=== PATIENT | male | born 1955 | race African-American/Black ===

== ENCOUNTER 2017-08-10 16:03 | Emergency (ER) | payer MEDICAID ==
[~2017-08-10 16:03] MED LIST: LOPE2TAB3 PO; RANI150C PO; ZOFR4TAB3 SL
[2017-08-10 16:05] VITALS: BP 154/106; PULSE 98; RESP 16; TEMP 97.6; O2SAT 99
[2017-08-10 16:45] LABS: AUTOMATED NEUTROPHIL # 2.1 TH/MM3 (1.8-7.7); BASOPHIL % 0.5 % (0.0-2.0); EOSINOPHIL # 0.3 TH/MM3 (0-0.4); EOSINOPHIL % 4.9 % (0.0-4.0); HEMATOCRIT 37.4 % (39.0-51.0); HEMO FLAGS DIFF FINAL; LYMPH % 49.6 % (9.0-44.0); LYMPHOCYTE # 3.1 TH/MM3 (1.0-4.8); MEAN CELL VOLUME 98.3 FL (80.0-100.0); MEAN CORPUSCULAR HEMOGLOBIN 33.2 PG (27.0-34.0); MEAN CORPUSCULAR HGB CONC 33.7 % (32.0-36.0); MONO % 11.6 % (0.0-8.0); NEUT % 33.4 % (16.0-70.0); PLATELET COUNT 207 TH/MM3 (150-450); RED BLOOD COUNT 3.81 MIL/MM3 (4.50-5.90); RED CELL DISTRIBUTION WIDTH 13.7 % (11.6-17.2); WHITE BLOOD COUNT 6.2 TH/MM3 (4.0-11.0)
[2017-08-10 16:52] LABS: BLOOD, URINE NEG (NEG); GLUCOSE,URINE NEG (NEG); HYALINE CAST, URINE 1 /lpf (RARE); KETONE, URINE NEG (NEG); NITRITE,URINE NEG (NEG); SQUAMOUS EPITHELIAL CELL URINE <1 /hpf (0-5); URINE COLOR LIGHT-YELLOW (YELLW/STRAW)
[2017-08-10 16:54] LABS: COMMENT (UR) CULT NOT INDICATED; CULTURE IF INDICATED CULT NOT INDICATED
[2017-08-10 17:05] LABS: APTT (PATIENT) 28.1 SEC (24.3-30.1); PROTHROMBIN TIME - PATIENT 11.3 SEC (9.8-11.6)
[2017-08-10 17:19] LABS: BICARBONATE 25.6 MEQ/L (21.0-32.0); POTASSIUM 3.5 MEQ/L (3.5-5.1)
--- NOTE | 2017-08-10 17:49 | PD ---
HPI Chief Complaint: Abdominal Pain Time Seen by Provider: 17:36 Travel History International Travel<30 days: No Contact w/Intl Traveler<30days: No Traveled to known affect area: No History of Present Illness HPI 62-year-old male here for evaluation of right inguinal hernia pain. The patient reports that he first noticed a hernia about 2 months ago while doing heavy lifting. He states that when he coughs to hernia protrudes. He has been having pain in this area for the last 2 months. No change today. No vomiting. No history of abdominal surgeries. Pain is described as burning, moderate. PFSH Social History Tobacco Use: No Allergies-Medications (Allergen,Severity, Reaction): Coded Allergies: No Known Allergies (Unverified , 08/22/16) Reported Meds & Prescriptions Reported Meds & Active Scripts Active Loperamide (Loperamide HCl) 2 Mg Tab 2 Mg PO DIRECTED PRN One tablet after each loose stool. Not to exceed 8 tablets per day. Zofran Odt (Ondansetron Odt) 4 Mg Tab 4 Mg SL Q8HR PRN May substitute non-ODT form. Ranitidine (Ranitidine HCl) 150 Mg Cap 150 Mg PO BID Review of Systems Except as stated in HPI: all other systems reviewed are Neg Physical Exam Narrative GENERAL: Well-developed, well-nourished, comfortable, no apparent distress. SKIN: Focused skin assessment warm/dry. HEAD: Atraumatic. Normocephalic. EYES: Pupils equal and round. No scleral icterus. No injection or drainage. ENT: No nasal bleeding or discharge. Mucous membranes pink and moist. NECK: Trachea midline. No JVD. CARDIOVASCULAR: Regular rate and rhythm. RESPIRATORY: No accessory muscle use. Clear to auscultation. Breath sounds equal bilaterally. GASTROINTESTINAL: Abdomen soft, non-tender, nondistended. Normal bowel sounds. : Direct right inguinal hernia that is easily reducible. The rest of his exam is within normal limits. MUSCULOSKELETAL: No obvious deformities. No clubbing. No cyanosis. No edema. NEUROLOGICAL: Awake and alert. No obvious cranial nerve deficits. Motor grossly within normal limits. Normal speech. PSYCHIATRIC: Appropriate mood and affect; insight and judgment normal. Data Data Last Documented VS Vital Signs Date Time Temp Pulse Resp B/P (MAP) Pulse Ox O2 Delivery O2 Flow Rate FiO2 08/10/17 16:05 97.6 98 16 154/106 (122) 99 Orders Orders Basic Metabolic Panel (Bmp) (08/10/17 16:20) Complete Blood Count With Diff (08/10/17 16:20) Prothrombin Time / Inr (Pt) (08/10/17 16:20) Act Partial Throm Time (Ptt) (08/10/17 16:20) Urinalysis - C+S If Indicated (08/10/17 16:20) Labs Laboratory Tests Test 08/10/17 16:25 08/10/17 16:30 White Blood Count 6.2 TH/MM3 Red Blood Count 3.81 MIL/MM3 Hemoglobin 12.6 GM/DL Hematocrit 37.4 % Mean Corpuscular Volume 98.3 FL Mean Corpuscular Hemoglobin 33.2 PG Mean Corpuscular Hemoglobin Concent 33.7 % Red Cell Distribution Width 13.7 % Platelet Count 207 TH/MM3 Mean Platelet Volume 7.6 FL Neutrophils (%) (Auto) 33.4 % Lymphocytes (%) (Auto) 49.6 % Monocytes (%) (Auto) 11.6 % Eosinophils (%) (Auto) 4.9 % Basophils (%) (Auto) 0.5 % Neutrophils # (Auto) 2.1 TH/MM3 Lymphocytes # (Auto) 3.1 TH/MM3 Monocytes # (Auto) 0.7 TH/MM3 Eosinophils # (Auto) 0.3 TH/MM3 Basophils # (Auto) 0.0 TH/MM3 CBC Comment DIFF FINAL Differential Comment Prothrombin Time 11.3 SEC Prothromb Time International Ratio 1.0 RATIO Activated Partial Thromboplast Time 28.1 SEC Blood Urea Nitrogen 8 MG/DL Creatinine 0.91 MG/DL Random Glucose 76 MG/DL Calcium Level 9.0 MG/DL Sodium Level 136 MEQ/L Potassium Level 3.5 MEQ/L Chloride Level 105 MEQ/L Carbon Dioxide Level 25.6 MEQ/L Anion Gap 5 MEQ/L Estimat Glomerular Filtration Rate 102 ML/MIN Urine Color LIGHT-YELLOW Urine Turbidity CLEAR Urine pH 5.0 Urine Specific [place] 1.002 Urine Protein NEG mg/dL Urine Glucose (UA) NEG mg/dL Urine Ketones NEG mg/dL Urine Occult Blood NEG Urine Nitrite NEG Urine Bilirubin NEG Urine Urobilinogen LESS THAN 2.0 MG/DL Urine Leukocyte Esterase NEG Urine WBC 1 /hpf Urine Squamous Epithelial Cells <1 /hpf Urine Hyaline Casts 1 /lpf Microscopic Urinalysis Comment CULT NOT INDICATED MDM Medical Decision Making Medical Screen Exam Complete: Yes Emergency Medical Condition: Yes Differential Diagnosis Inguinal hernia Narrative Course This is a 62-year-old male who has a direct right inguinal hernia that is easily reducible. There are no signs of incarceration or straining urination. Basic labs were performed in triage and show a slight lymphocytosis of 49.6% with a WBC count of 6.2. Vital signs show slightly elevated blood pressure at 154/106. Patient has had this hernia for about 2 months after performing heavy lifting. At this point he is stable for discharge home with outpatient follow- up with a general surgeon. I advised that he buy a truss. I also advised that he follow-up as an outpatient regarding the slight lymphocytosis. He was informed on when to return to the emergency department. He verbalizes understanding and agreement with plan. Diagnosis Primary Impression: Reducible right inguinal hernia Additional Impression: Lymphocytosis Referrals: Nickolas Simmons MD 3 days General Surgeon [facility] 3 days Primary Care Physician 3 days Additional Instructions: Follow-up with general surgeon Dr. Simmons or a general surgeon of your choice this week. Follow-up with a primary care physician this week. Return to the emergency department for worsening symptoms or any other concerns as discussed. Disposition: 01 DISCHARGE HOME Condition: Stable Austin Bailon MD Aug 10, 2017 17:49
== END 2017-08-10 18:03 | disposition home or self-care (01) ==
LOC: NEPD 16:03
DX: K40.90 Unilateral inguinal hernia, without obstruction or gangrene, not specified as recurrent (principal); D72.820 Lymphocytosis (symptomatic); Z79.899 Other long term (current) drug therapy
CPT/HCPCS: 80048; 81001; 85025; 85610; 85730; 99283

== ENCOUNTER 2017-08-18 18:24 | Emergency (ER) | payer MEDICAID ==
[~2017-08-18] VITALS: Ht 170.2 cm; Wt 61.4 kg
[2017-08-18 18:26] VITALS: BP 144/90; PULSE 83; RESP 18; TEMP 98.5; O2SAT 97
[2017-08-18] MEDS ORDERED: SODIUM CHLOR 0.9% 1000 ML INJ 1,000 ML IV SCH (18:56)
[2017-08-18] MEDS ORDERED: ONDANSETRON HCL 4 MG/2 ML VIAL IVP ONE (19:00)
[2017-08-18] MEDS ORDERED: MORPHINE SULFATE 4 MG/ML INJ IV PUSH ONE (19:00)
--- NOTE | 2017-08-18 19:02 | PD ---
HPI Chief Complaint: Abdominal Pain Time Seen by Provider: 18:41 Travel History International Travel<30 days: No Contact w/Intl Traveler<30days: No Traveled to known affect area: No History of Present Illness HPI 62 YO M with PMH of right inguinal hernia 2 months presents to the ED for evaluation of right-sided abdominal pain. Described as waxing and waning, rated 10/10 maximally. Worsened by standing. No alleviating factors reported. Patient endorses a single episode of nausea and vomiting this morning. Denies any change in bowel habits. Denies dysuria, hematuria. No treatment attempt at home. Patient was evaluated by his primary care today and sent to the ED for evaluation. PFSH Past Medical History Cardiovascular Problems: Yes (CAD, HTN) Social History Alcohol Use: No Tobacco Use: No Substance Use: Yes (marijuana) Allergies-Medications (Allergen,Severity, Reaction): Coded Allergies: No Known Allergies (Unverified Allergy, Unknown, 08/18/17) Reported Meds & Prescriptions Reported Meds & Active Scripts Active Tramadol (Tramadol HCl) 50 Mg Tab 50 Mg PO Q6H PRN Review of Systems Except as stated in HPI: all other systems reviewed are Neg Physical Exam Narrative GENERAL: Well-nourished, well-developed nontoxic-appearing black male in no acute distress. SKIN: Focused skin assessment warm/dry. HEAD: Normocephalic. EYES: No scleral icterus. No injection or drainage. NECK: Supple, trachea midline. No JVD or lymphadenopathy. CARDIOVASCULAR: Regular rate and rhythm without murmurs, gallops, or rubs. RESPIRATORY: Breath sounds equal bilaterally. No accessory muscle use. GASTROINTESTINAL: Abdomen soft, non-tender, nondistended. There is a easily reducible hernia in the right groin. MUSCULOSKELETAL: No cyanosis, or edema. BACK: Nontender without obvious deformity. No CVA tenderness. Data Data Last Documented VS Vital Signs Date Time Temp Pulse Resp B/P (MAP) Pulse Ox O2 Delivery O2 Flow Rate FiO2 08/18/17 22:29 08/18/17 18:26 98.5 83 18 97 Room Air Orders Orders Morphine Inj (Morphine Inj) (08/18/17 19:00) Ondansetron Inj (Zofran Inj) (08/18/17 19:00) Sodium Chlor 0.9% 1000 Ml Inj (Ns 1000 M (08/18/17 18:56) Complete Blood Count With Diff (08/18/17 19:22) Comprehensive Metabolic Panel (08/18/17 19:22) Lipase (08/18/17 19:22) Lactic Acid (08/18/17 19:22) Urinalysis - C+S If Indicated (08/18/17 19:22) Ct Abd/Pel W Iv Contrast(Rout) (08/18/17 19:22) Iv Access Insert/Monitor (08/18/17 19:22) Ecg Monitoring (08/18/17 19:22) Oximetry (08/18/17 19:22) Sodium Chloride 0.9% Flush (Ns Flush) (08/18/17 19:30) Iohexol 350 Inj (Omnipaque 350 Inj) (08/18/17 21:13) Labs Laboratory Tests Test 08/18/17 19:28 08/18/17 19:45 White Blood Count 6.2 TH/MM3 Red Blood Count 3.73 MIL/MM3 Hemoglobin 12.2 GM/DL Hematocrit 36.2 % Mean Corpuscular Volume 97.2 FL Mean Corpuscular Hemoglobin 32.6 PG Mean Corpuscular Hemoglobin Concent 33.5 % Red Cell Distribution Width 13.4 % Platelet Count 186 TH/MM3 Mean Platelet Volume 8.2 FL Neutrophils (%) (Auto) 34.5 % Lymphocytes (%) (Auto) 51.1 % Monocytes (%) (Auto) 10.0 % Eosinophils (%) (Auto) 3.8 % Basophils (%) (Auto) 0.6 % Neutrophils # (Auto) 2.1 TH/MM3 Lymphocytes # (Auto) 3.1 TH/MM3 Monocytes # (Auto) 0.6 TH/MM3 Eosinophils # (Auto) 0.2 TH/MM3 Basophils # (Auto) 0.0 TH/MM3 CBC Comment DIFF FINAL Differential Comment Blood Urea Nitrogen 13 MG/DL Creatinine 0.95 MG/DL Random Glucose 96 MG/DL Total Protein 8.0 GM/DL Albumin 3.5 GM/DL Calcium Level 9.1 MG/DL Alkaline Phosphatase 77 U/L Aspartate Amino Transf (AST/SGOT) 39 U/L Alanine Aminotransferase (ALT/SGPT) 41 U/L Total Bilirubin 0.5 MG/DL Sodium Level 138 MEQ/L Potassium Level 3.6 MEQ/L Chloride Level 102 MEQ/L Carbon Dioxide Level 25.9 MEQ/L Anion Gap 10 MEQ/L Estimat Glomerular Filtration Rate 97 ML/MIN Lactic Acid Level 0.9 mmol/L Lipase 262 U/L Urine Color YELLOW Urine Turbidity CLEAR Urine pH 5.5 Urine Specific [place] 1.017 Urine Protein NEG mg/dL Urine Glucose (UA) NEG mg/dL Urine Ketones NEG mg/dL Urine Occult Blood NEG Urine Nitrite NEG Urine Bilirubin NEG Urine Urobilinogen 2.0 MG/DL Urine Leukocyte Esterase SMALL Urine RBC 2 /hpf Urine WBC 2 /hpf Urine Squamous Epithelial Cells 1 /hpf Urine Mucus FEW /lpf Microscopic Urinalysis Comment CULT NOT INDICATED MDM Medical Decision Making Medical Screen Exam Complete: Yes Emergency Medical Condition: Yes Differential Diagnosis Right inguinal hernia versus incarcerated inguinal hernia versus bowel obstruction versus ischemic bowel versus other Narrative Course 62-year-old male with PMH of right inguinal hernia 2 months presents to the ED for evaluation of increased right-sided abdominal pain, described as waxing and waning, rated 10/10 maximally. Worsened by standing. He was sent by his doctor today. Vitals reviewed. Physical exam reveals a nontoxic-appearing black male in no acute distress. There is an easily reducible right inguinal hernia but the abdominal exam is otherwise unremarkable. IV was established. Patient was administered 4 mg morphine, 4 mg Zofran and 1 L normal saline. No concerning abnormalities of the CBC, CMP, UA. Lactic acid: 0.9. CT: Right inguinal hernia with several loops of nondilated small intestine. Enlarged prostate, T12 sclerosis. 6.9 mm lower pole left renal calculus, axillary 0.4 cm left upper pole renal cyst. On recheck the patient reports resolution of his pain. I recommended the patient wear a hernia belt, he was provided a short course of tramadol. I discussed the results of the CT, as well as the need to follow up with a general surgeon and a urologist for further evaluation. The patient indicated understanding of the discharge instructions. He endorsed a previous lower spinal injury that may account for the sclerosing seen on the CT. However, he does understand the importance of follow-up. He is stable and discharged home. Diagnosis Primary Impression: Right inguinal hernia Referrals: Donell Smith MD, Bennett P. MD Primary Care Physician Patient Instructions: General Instructions, Inguinal Hernia (ED) Additional Instructions: Rest, hydrate. Take pain medication as prescribed as needed for pain greater than 6. Do not take pain medication while driving as it can cause drowsiness. Wear a hernia belt as suggested by your primary care provider. Follow-up with the general surgeon as discussed. Take the CT results to your primary care at the next visit. Return to the ED for any urgent or emergent medical condition. Med/Other Pt SpecificInfo: Prescription(s) given Scripts Tramadol (Tramadol) 50 Mg Tab 50 MG PO Q6H Y for PAIN GREATER THAN 6, #12 TAB 0 Refills Prov: Yelena Meehan MD 08/18/17 Disposition: 01 DISCHARGE HOME Condition: Stable Lili Badillo Aug 18, 2017 19:02
[2017-08-18] MEDS ORDERED: SODIUM CHLORIDE 0.9% FLUSH 10 ML FLUSH IV FLUSH PRN (19:30)
[2017-08-18 19:57] LABS: BLOOD, URINE NEG (NEG); COMMENT (UR) CULT NOT INDICATED; CULTURE IF INDICATED CULT NOT INDICATED; GLUCOSE,URINE NEG (NEG); KETONE, URINE NEG (NEG); MUCUS URINE FEW /lpf (OCC); NITRITE,URINE NEG (NEG); PH, URINE 5.5 (5.0-8.5); SQUAMOUS EPITHELIAL CELL URINE 1 /hpf (0-5); URINE COLOR YELLOW (YELLW/STRAW)
[2017-08-18 19:58] LABS: AUTOMATED NEUTROPHIL # 2.1 TH/MM3 (1.8-7.7); BASOPHIL % 0.6 % (0.0-2.0); EOSINOPHIL # 0.2 TH/MM3 (0-0.4); EOSINOPHIL % 3.8 % (0.0-4.0); HEMATOCRIT 36.2 % (39.0-51.0); HEMO FLAGS DIFF FINAL; LYMPH % 51.1 % (9.0-44.0); LYMPHOCYTE # 3.1 TH/MM3 (1.0-4.8); MEAN CELL VOLUME 97.2 FL (80.0-100.0); MEAN CORPUSCULAR HEMOGLOBIN 32.6 PG (27.0-34.0); MEAN CORPUSCULAR HGB CONC 33.5 % (32.0-36.0); NEUT % 34.5 % (16.0-70.0); PLATELET COUNT 186 TH/MM3 (150-450); RED BLOOD COUNT 3.73 MIL/MM3 (4.50-5.90); RED CELL DISTRIBUTION WIDTH 13.4 % (11.6-17.2); WHITE BLOOD COUNT 6.2 TH/MM3 (4.0-11.0)
[2017-08-18 20:21] LABS: ANION GAP 10 MEQ/L (5-15); AST (GOT) 39 U/L (15-37); BICARBONATE 25.9 MEQ/L (21.0-32.0); BLOOD UREA NITROGEN 13 MG/DL (7-18); CHLORIDE 102 MEQ/L (98-107); GLOMERULAR FILTRATION RATE 97 ML/MIN (>89); POTASSIUM 3.6 MEQ/L (3.5-5.1); SODIUM (NA) 138 MEQ/L (136-145)
[2017-08-18 20:24] LABS: ALKALINE PHOSPHATASE 77 U/L (45-117); ALT (GPT) 41 U/L (12-78); TOTAL BILIRUBIN ADULT 0.5 MG/DL (0.2-1.0)
[2017-08-18] MEDS ORDERED: IOHEXOL 350 MG/ML 10 ML VIAL (for RAD DIAG) IVCONTRAST ONE (21:13)
--- NOTE | 2017-08-18 21:46 | RADRPT ---
EXAM DATE/TIME: 08/18/2017 21:09 [facility] COMPARISON: No previous studies available for comparison. INDICATIONS : Right groin pain with nausea and vomiting. IV CONTRAST: 100 cc Omnipaque 350 (iohexol) IV ORAL CONTRAST: No oral contrast ingested. RADIATION DOSE: 4.90 CTDIvol (mGy) MEDICAL HISTORY : Hypertension. Hernia, inguinal. CAD. SURGICAL HISTORY : None. ENCOUNTER: Initial ACUITY: 2 months PAIN SCALE: 10/10 LOCATION: Right groin. TECHNIQUE: Volumetric scanning of the abdomen and pelvis was performed. Using automated exposure control and ad justment of the mA and/or kV according to patient size, radiation dose was kept as low as reasonably achievable to obtain optimal diagnostic quality images. DICOM format image data is available electro nically for review and comparison. FINDINGS: LOWER LUNGS: Bibasilar patchiness is noted consistent with possible pneumonia. LIVER: Homogeneous density without lesion. There is no dilation of the biliary tree. No calcified gallston es. SPLEEN: Normal size without lesion. PANCREAS: Within normal limits. KIDNEYS: Normal in size and shape. There is a 9 mm calcified lower pole left renal calculus which is nonobstru cting. There is a 3.4 cm upper pole left renal cyst. ADRENAL GLANDS: Within normal limits. VASCULAR: There is no aortic aneurysm. BOWEL/MESENTERY: The stomach, small bowel, and colon demonstrate no acute abnormality. There is no free intraperitone al air or fluid. ABDOMINAL WALL: Within normal limits. RETROPERITONEUM: There is no lymphadenopathy. BLADDER: The urinary bladder is distended and its wall is mildly thickened. REPRODUCTIVE: The prostate gland is enlarged. INGUINAL: There is a right inguinal hernia which contains loops of nondilated small intestine. MUSCULOSKELETAL: Degenerative changes are noted throughout the thoracic and lumbar spine. There is a sclerotic focus w ithin the right side of T12 as well as smaller areas within the bony pelvis which are indeterminate. Bone scan may be helpful for further assessment of these findings. CONCLUSION: 1. Bibasilar patchiness consistent with possible developing pneumonia. 2. Right inguinal hernia containing several loops of nondilated small intestine. 3. Enlarged prostate. 4. Distended urinary bladder with mild wall thickening. 5. Focus of sclerosis involving the right side of T12 as well as smaller areas within the bony pelvis which are indeterminate. Sclerotic metastases are in the differential. Bone scan may be helpful for further evaluation of these findings if clinically indicated. 6. 9 mm nonobstructing calcified lower pole left renal calculus. 7. 3.4 cm left upper pole renal cyst. Jl Cortez MD on August 18, 2017 at 21:36 Board Certified Radiologist. This report was verified electronically.
[2017-08-18] MEDS ORDERED: TRAM50TA PO (22:01)
== END 2017-08-18 22:33 | disposition home or self-care (01) ==
LOC: NEPE 18:24
DX: K40.90 Unilateral inguinal hernia, without obstruction or gangrene, not specified as recurrent (principal); N20.0 Calculus of kidney; N40.0 Benign prostatic hyperplasia without lower urinary tract symptoms; N28.1 Cyst of kidney, acquired; R11.2 Nausea with vomiting, unspecified; I25.10 Atherosclerotic heart disease of native coronary artery without angina pectoris; I10 Essential (primary) hypertension; Z79.899 Other long term (current) drug therapy
CPT/HCPCS: 74177; 80053; 81001; 83605; 83690; 85025; 96361; 96374; 96375; 99285; J2270; J2405; J7030; Q9967